=== PATIENT | female | born 1970 | race Two or more races ===

== ENCOUNTER 2020-05-22 08:00 | Outpatient (CLI) | payer OTHER | END 2020-05-22 08:26 | disposition home or self-care (01) | LOC: SONOGRAMA 08:00 → MAMO-SONO 08:45 | DX: N84.0 Polyp of corpus uteri (principal) ==

== ENCOUNTER 2020-06-12 10:31 | Day surgery (SDC) | payer OTHER ==
[~2020-06-12 10:31] MED LIST: NORVA PO
== END 2020-06-12 23:20 | disposition home or self-care (01) ==
LOC: CIR.AMB 10:31
PROVIDERS: ATTEND Obstetrics & Gynecology
DX: N84.0 Polyp of corpus uteri (principal); Z20.828 Contact with and (suspected) exposure to other viral communicable diseases

== ENCOUNTER 2023-07-05 10:24 | Outpatient (CLI) | payer OTHER | END 2023-07-05 10:35 | disposition home or self-care (01) | LOC: RAD 10:24 | PROVIDERS: ATTEND Podiatrist Foot Surgery | DX: M20.11 Hallux valgus (acquired), right foot (principal); M20.12 Hallux valgus (acquired), left foot ==

== ENCOUNTER 2025-05-01 08:36 | Outpatient (CLI) | payer OTHER | END 2025-05-01 08:44 | disposition home or self-care (01) | LOC: RAD 08:36 | DX: R20.0 Anesthesia of skin (principal); M50.90 Cervical disc disorder, unspecified, unspecified cervical region; M54.50 Low back pain, unspecified ==

== ENCOUNTER 2025-05-15 07:15 | Outpatient (CLI) | payer OTHER | END 2025-05-15 07:18 | disposition home or self-care (01) | LOC: SONOGRAMA 07:15 | DX: K21.9 Gastro-esophageal reflux disease without esophagitis (principal); Z90.49 Acquired absence of other specified parts of digestive tract; Z87.442 Personal history of urinary calculi ==

== ENCOUNTER 2025-06-28 08:27 | Outpatient (CLI) | payer OTHER | END 2025-06-28 08:33 | disposition home or self-care (01) | LOC: MAMO-SONO 08:27 | DX: R92.1 Mammographic calcification found on diagnostic imaging of breast (principal); N60.09 Solitary cyst of unspecified breast ==

== ENCOUNTER 2025-07-03 10:16 | Outpatient (CLI) | payer OTHER | END 2025-07-03 10:17 | disposition home or self-care (01) | LOC: NUCLEAR 10:16 | DX: M85.89 Other specified disorders of bone density and structure, multiple sites (principal); M81.0 Age-related osteoporosis without current pathological fracture ==

== ENCOUNTER → 2025-07-16 11:52 | Outpatient (CLI) | payer OTHER ==
[2025-07-16 14:25] LABS: URINE APPEARANCE Clear; URINE BILIRRUBIN Negative (NEGATIVE); URINE BLOOD Negative; URINE COLOR Yellow; URINE GLUCOSE Negative (NEGATIVE); URINE KETONE Negative (NEGATIVE); URINE LEUKOCYTE Small; URINE NITRATE Negative; URINE PROTEIN Negative (NEGATIVE); URINE UROBILINOGEN 0.2 E.U./dl
[2025-07-16 14:29] LABS: URINE BACTERIA 274.7 uL (0.0-1933); URINE EPITHELIAL CELLS 15.2 uL (0.0-38.8); URINE RBC 5.7 uL (0.0-20.8); URINE WBC 10.1 uL (0.0-23.2)
[2025-07-16 14:38] LABS: BASO % 1.1 % (0.1-1.2); EOS # 0.17 (0.04-0.54); EOS % 2.6 % (0.7-7.0); LYMPH # 2.17 (1.18-3.74); LYMPH % 32.7 % (19.3-53.1); MEAN PLATELET VOLUME 11.60 fl (9.4-12.4); MONO # 0.37 (0.24-0.82); MONO % 5.6 % (4.7-12.5); NEUT # 3.84 (1.56-6.13); NEUT % 57.8 % (34.0-71.1); RED CELL DISTRIBUTION WIDTH 15.3 % (11.6-14.4)
[2025-07-16 15:12] LABS: URINE CAST 0.14 uL (0.0-1.40)
[2025-07-16 15:36] LABS: ALT/SGPT 28.0 U/L (12-78); AST/SGOT 23.0 U/L (15-37); BILIRUBIN TOTAL 0.46 mg/dL (0.3-1.2); BUN CREA RATIO 29.0 (7.0-25.0); CHOL HDL RATIO 3.0 (0-5.0); CREATININE SERUM 0.58 mg/dL (0.55-1.02); GFR 107.15; GLOBULINA 3.5 G/DL (2.4-3.5); GLUCOSE FASTING 83.0 mg/dL (65-100); HDL 71.0 mg/dl (40-60); LDL 129.0 mg/dl (0-130); OSMOLALITY SERUM 288.0 MOSM/KG (275-295); TSH 1.06 uIU/mL (0.358-3.74); VLDL 14.0 (0-39)
== END | disposition home or self-care (01) ==
LOC: LAB 11:52
DX: E78.00 Pure hypercholesterolemia, unspecified (principal); I10 Essential (primary) hypertension; E55.9 Vitamin D deficiency, unspecified; R73.03 Prediabetes; Z12.11 Encounter for screening for malignant neoplasm of colon; Z11.3 Encounter for screening for infections with a predominantly sexual mode of transmission; Z13.29 Encounter for screening for other suspected endocrine disorder

== ENCOUNTER → 2025-07-20 06:18 | Outpatient (CLI) | payer OTHER ==
[2025-07-20 11:39] LABS: ob NEGATIVE (NEGATIVE)
== END | disposition home or self-care (01) ==
LOC: LAB 06:18
DX: E78.00 Pure hypercholesterolemia, unspecified (principal); E55.9 Vitamin D deficiency, unspecified; I10 Essential (primary) hypertension; R73.03 Prediabetes; Z12.11 Encounter for screening for malignant neoplasm of colon; Z11.4 Encounter for screening for human immunodeficiency virus [HIV]; Z11.3 Encounter for screening for infections with a predominantly sexual mode of transmission; Z13.29 Encounter for screening for other suspected endocrine disorder